=== PATIENT | female | born 1980 | race Caucasian/White ===

== ENCOUNTER 2016-08-31 18:44 | Emergency (ER) | payer OTHER ==
[~2016-08-31] VITALS: Ht 139.7 cm; Wt 69.3 kg
[~2016-08-31 18:44] MED LIST: ALBUAER2 INH; CYM30 PO; CYM60 PO; FLUT1INH INH; GLC500 PO; HYDR4TAB2 PO; IBUP-1050 PO; IMT100 PO; IPRA1AER2 INH; KLN1X PO; NAPR1TAB9 PO; OXYC-164 PO; PARO30TA4 PO; RST/30 PO
[2016-08-31 18:50] VITALS: BP 101/52; PULSE 137; TEMP 37.1; O2SAT 95; Ht 139.7 cm; Wt 69.3 kg
== END 2016-08-31 19:29 | disposition left against medical advice (07) ==
LOC: C.EDB 18:45
DX: M79.606 Pain in leg, unspecified (principal)

== ENCOUNTER 2016-11-04 20:16 | Emergency (ER) | payer OTHER ==
[~2016-11-04] VITALS: Ht 137.2 cm; Wt 75.0 kg
[2016-11-04 20:24] VITALS: TEMP 36.7; O2SAT 91; Ht 137.2 cm; Wt 75.0 kg
[2016-11-04] MEDS ORDERED: ALBUT/IPRATROP 3MG/0.5MG NEB 3 ML VIAL INH STA (20:31)
--- NOTE | 2016-11-04 21:34 | DIAGNOSTIC IMAGING REPORT ---
SINGLE VIEW CHEST CLINICAL HISTORY: Asthma. FINDINGS: An AP, portable, upright chest radiograph is compared to study dated 10/24/2015. The examination is degraded by portable technique and large body habitus. The cardiomediastinal silhouette is unremarkable. There are low lung volumes with bibasilar atelectasis. The lungs and pleural spaces are otherwise clear. No pneumothorax is seen. The bony thorax is grossly intact. IMPRESSION: Low lung volumes with no active disease in the chest. Electronically signed by: Migue Westfall M.D. 11/04/2016 9:32 PM Dictated Date/Time: 11/04/2016 9:31 PM
--- NOTE | 2016-11-04 21:55 | EMERGENCY ROOM VISIT NOTE ---
History Report prepared by Marci: Carlos Manuel Stinson Under the Supervision of: Dr. Bharat Carr D.O. First contact with patient: 20:22 Chief Complaint: RESPIRATORY PROBLEMS Stated Complaint: BREATHING DIFF. History of Present Illness The patient is a 36 year old female who presents to the Emergency Room with complaints of an episode of an asthma attack occurring about 1 hour ago. She reports pain in her throat, and denies any recent illness. She notes she has not slept for many days because of depression. The patient denies any drug use. Per the police, she was shoplifting at [facility] before her episode of respiratory problems. She fled by running and was apprehended. She was found to be in possession of drugs including 5 bags of heroin. She was also found to be in possession of a snorting straw. Source of History: patient, police Onset: about 1 hour ago Position: other (lungs) Quality: other (asthma attack) Timing: other (episode) Note: Patient complains of throat pain. Review of Systems See HPI for pertinent positives & negatives. A total of 10 systems reviewed and were otherwise negative. Past Medical & Surgical Medical Problems: (1) Arthritis (2) Asthma, Unspecified (3) Diab Rachel Wo Compl, Type Ii Or Unspec Type, Not Uncntrld (4) Fibromyalgia (5) Herniated disc (6) HTN (hypertension) (7) Osteoarthros Nos-Unspec (8) Spondylosis Surgical Problems: (1) H/O gastric bypass (2) History of appendectomy (3) History of hysterectomy Family History Cancer Diabetes mellitus Hypertension Kidney disease Kidney stones Social History Smoking Status: Current Every Day Smoker Alcohol Use: none Drug Use: none Marital Status: Housing Status: lives with family Occupation Status: unemployed Current/Historical Medications Scheduled Duloxetine HCl (Duloxetine HCl), 30 MG PO DAILY Duloxetine HCl (Duloxetine HCl), 60 MG PO DAILY Fluticasone Furoate-Vilanterol (Breo Ellipta), 1 PUFF INH DAILY Ipratropium-Albuterol (Combivent Respimat), 1 PUFF INH QID Paroxetine (Paroxetine HCl), 30 MG PO DAILY Temazepam (Restoril), 30 MG PO HS Scheduled PRN Albuterol (Ventolin Hfa), 2 PUFFS INH Q4H PRN for Wheezing Ibuprofen (Advil), 600 MG PO Q6H PRN for Pain or Fever Naproxen (Aleve), 440 MG PO UD PRN for Pain Sumatriptan Succinate (Imitrex), 100 MG PO UD PRN for Migraine Allergies Coded Allergies: Aspirin (Verified Allergy, Unknown, HIVES, 11/04/16) Dexamethasone (Verified Allergy, Unknown, URTICARIA, 11/04/16) can take with benadryl Iodinated Diagnostic Agents (Unverified Allergy, Unknown, UNKNOWN, 11/04/16 ) Shellfish (Verified Allergy, Unknown, ANAPHYLAXIS, 11/04/16) Tramadol (Verified Allergy, Unknown, hives and vomiting, 11/04/16) Gabapentin (Verified Adverse Reaction, Intermediate, "twitching", 11/04/16) Physical Exam Vital Signs Date Time Temp Pulse Resp B/P Pulse Ox O2 Delivery O2 Flow Rate FiO2 11/04/16 21:00 120 20 96 Room Air 11/04/16 20:28 118 11/04/16 20:24 91 Nasal Cannula 6.0 11/04/16 20:24 91 Nasal Cannula 6.0 11/04/16 20:24 36.7 122 26 114/61 91 Nasal Cannula 6.0 Physical Exam CONSTITUTIONAL/VITAL SIGNS: Reviewed / noted above. GENERAL: Non-toxic in appearance. INTEGUMENTARY: Warm, dry, and [place]. HEAD: Normocephalic. EYES: without scleral icterus or trauma. ENT/OROPHARYNX: clear and moist. LYMPHADENOPATHY/NECK: Is supple without lymphadenopathy or meningismus. RESPIRATORY: Lungs clear and equal. Patient has some expiratory scattered wheezing. CARDIOVASCULAR: Regular rate and rhythm. GI/ABDOMEN: Soft and nontender. No organomegaly or pulsatile mass. No rebound or guarding. Normal bowel sounds. EXTREMITIES: Warm and well perfused. BACK: No CVA tenderness. NEUROLOGICAL: Intact without focal deficits. PSYCHIATRIC: normal affect. MUSCULOSKELETAL: Normally developed with good muscle tone. TRIAGE NURSING DOCUMENTATION REVIEWED. Medical Decision & Procedures ER Provider Diagnostic Interpretation: Radiology results as stated below per my review and radiologist interpretation: SINGLE VIEW CHEST FINDINGS: An AP, portable, upright chest radiograph is compared to study dated 10/24/2015. The examination is degraded by portable technique and large body habitus. The cardiomediastinal silhouette is unremarkable. There are low lung volumes with bibasilar atelectasis. The lungs and pleural spaces are otherwise clear. No pneumothorax is seen. The bony thorax is grossly intact. IMPRESSION: Low lung volumes with no active disease in the chest. Electronically signed by: Migue Westfall M.D. 11/04/2016 9:32 PM Dictated Date/Time: 11/04/2016 9:31 PM Laboratory Results Test 11/04/16 20:31 Laboratory results as stated above per my review. Medications Administered Medications (Trade) Dose Ordered Sig/[place] Route Start Time Stop Time Status Last Admin Dose Admin Albuterol/ Ipratropium (Duoneb) 3 ml NOW STAT INH 11/04/16 20:31 11/04/16 20:34 DC 11/04/16 20:41 3 ML ECG Indication: SOB/dyspnea Rate (beats per minute): 116 Rhythm: sinus tachycardia Findings: no acute ischemic change, no ectopy ED Course 2022: Previous medical records were reviewed. The patient was evaluated in room B2. A complete history and physical examination was performed. 2030: Ordered Duoneb 3 ml INH. Medical Decision the differential was considered includes acute myocardial infarction, acute coronary syndrome, myocarditis, pericarditis, pericardial effusions /tamponad, esophageal perforation, pulmonary embolism, pneumonia, pneumothorax, cardiomyopathy, congestive heart, anemia , COPD/asthma exacerbation. This is a 36-year-old female who presents to the ED with a chief complaint of shortness of breath. The patient was brought in by police after she was caught shoplifting at [facility]. The patient also was found to have heroin on her person and I heroin snorting tube. The patient claimed to be having an asthma attack. She did have some expiratory wheezing on exam. She was treated with a DuoNeb treatment. She refused blood work. A chest x-ray did not show acute disease. The patient was felt to be stable for discharge. She was feeling better at the time of disposition. Impression Primary Impression: Asthma exacerbation Scribe Attestation The scribe's documentation has been prepared under my direction and personally reviewed by me in its entirety. I confirm that the note above accurately reflects all work, treatment, procedures, and medical decision making performed by me. Departure Information Dispostion Home / Self-Care Referrals No Doctor, Assigned (PCP) Patient Instructions Asthma - [facility] Additional Instructions Follow-up with your doctor for further care and evaluation in 1-2 days. Return to the emergency department for worsening or new symptoms or any concerns. You have been examined and treated today on an emergency basis only. This is not a substitute for, or an effort to provide, complete comprehensive medical care. It is impossible to recognize and treat all injuries or illnesses in a single emergency department visit. It is therefore important that you follow up closely with your doctor. Call as soon as possible for an appointment.
[2016-11-04 22:05] VITALS: BP 106/65; PULSE 115; O2SAT 95
== END 2016-11-04 22:10 | disposition home or self-care (01) ==
LOC: EDBD 20:16 → C.EDB 20:17
DX: J45.901 Unspecified asthma with (acute) exacerbation (principal); I10 Essential (primary) hypertension; E11.9 Type 2 diabetes mellitus without complications; M19.90 Unspecified osteoarthritis, unspecified site; F17.200 Nicotine dependence, unspecified, uncomplicated; Z79.899 Other long term (current) drug therapy; Z90.710 Acquired absence of both cervix and uterus; Z98.84 Bariatric surgery status; Z98.890 Other specified postprocedural states; Z88.6 Allergy status to analgesic agent; Z88.8 Allergy status to other drugs, medicaments and biological substances; Z91.018 Allergy to other foods; Z91.041 Radiographic dye allergy status; Z80.9 Family history of malignant neoplasm, unspecified; Z83.3 Family history of diabetes mellitus; Z82.49 Family history of ischemic heart disease and other diseases of the circulatory system; Z84.1 Family history of disorders of kidney and ureter